=== PATIENT | male | born 2000 | race African-American/Black ===

== ENCOUNTER 2019-12-20 04:15 | Emergency (ER) | payer MEDICAID ==
[~2019-12-20] VITALS: Ht 177.8 cm; Wt 76.0 kg
[2019-12-20] MEDS ORDERED: SODIUM CHLORIDE 0.9% 1,000 ML IV ONE (05:09)
[2019-12-20] MEDS ORDERED: ONDANSETRON HCL 4MG/2ML INJ IV STA (05:09)
[2019-12-20 05:31] LABS: BASOPHILS % 0.3 % (0.0-2.0); HEMATOCRIT. 42.7 % (42.0-52.0); HEMOGLOBIN. 13.8 g/dL (14.0-18.0); LYMPHOCYTES % 7.4 % (20.0-50.0); MEAN CORPUSCULAR HEMOGLOBIN 29.4 pg (28.0-32.0); MEAN CORPUSCULAR VOLUME 90.7 fL (80.0-94.0); MEAN PLATELET VOLUME 9.4 fl (7.4-10.4); MONOCYTES % 4.1 % (2.0-8.0); NEUTROPHILS % 87.2 % (40.0-76.0); PLATELET 195 x1000/uL (130-400); RED CELL DISTRIBUTION WIDTH 14.7 % (11.6-14.6)
[2019-12-20 05:32] LABS: CHLORIDE 107 mEq/L (98-107)
[2019-12-20 05:37] LABS: ETHANOL BLOOD 263 mg/dL
[2019-12-20 05:44] LABS: *AMPHETAMINES SCREEN URINE NEGATIVE (NEGATIVE); *BARBITURATES SCREEN URINE NEGATIVE (NEGATIVE); *BENZODIAZEPINES SCREEN URINE NEGATIVE (NEGATIVE); *COCAINE SCREEN URINE NEGATIVE (NEGATIVE)
[2019-12-20 05:45] LABS: CANNABINOID URINE SCREEN PRESUMTIVE POSITIVE (NEGATIVE); METHADONE URINE SCREEN NEGATIVE (NEGATIVE); OPIATES URINE SCREEN NEGATIVE (NEGATIVE); PHENCYCLIDINE URINE SCREEN NEGATIVE (NEGATIVE)
[2019-12-20 11:06] VITALS: BP 120/85
== END 2019-12-20 11:27 | disposition home or self-care (01) ==
LOC: ER 04:47
DX: F10.129 Alcohol abuse with intoxication, unspecified (principal); R11.10 Vomiting, unspecified; R41.82 Altered mental status, unspecified; R00.1 Bradycardia, unspecified; Y90.8 Blood alcohol level of 240 mg/100 ml or more
CPT/HCPCS: 36415; 80053; 80305; 80320; 85025; 93005; 96361; 96374; 99285; J2405; J7030; G0480